=== PATIENT | male | born 1955 | race Two or more races ===

== ENCOUNTER 2019-02-14 10:43 | Outpatient (CLI) | payer OTHER ==
[~2019-02-14 10:43] MED LIST: APRESOLINE 10MG10 MG PO; AVAPRO300 MG PO; COREG CR20 MG PO; LISINOPRIL40 MG PO; METFORMIN HCL500 MG PO
== END 2019-02-14 10:46 | disposition home or self-care (01) ==
LOC: LAB 10:43
DX: R97.21 Rising PSA following treatment for malignant neoplasm of prostate (principal)

== ENCOUNTER 2019-04-12 07:08 | Outpatient (CLI) | payer OTHER | END 2019-04-12 07:16 | disposition home or self-care (01) | LOC: SONOGRAMA 07:08 | DX: C61 Malignant neoplasm of prostate (principal); D29.1 Benign neoplasm of prostate; R97.20 Elevated prostate specific antigen [PSA] ==

== ENCOUNTER 2019-06-06 08:30 | Inpatient (IN) | payer OTHER ==
[~2019-06-06] VITALS: Ht 170.2 cm; Wt 110.2 kg
[2019-06-06] MEDS ORDERED: TRICOR145 MG PO (11:06)
[2019-06-06] MEDS ORDERED: LIPITOR20 MG PO (11:06)
[2019-06-06] MEDS ORDERED: ZYLOPRIM300 MG PO (11:06)
[2019-06-06] MEDS ORDERED: LASIX40 MG PO (11:06)
[2019-06-06] MEDS ORDERED: NORVASC5 MG PO (11:07)
== END 2019-06-14 09:45 | disposition home or self-care (01) | DRG 708 ==
LOC: ADM 08:30 → EDSTATUS 08:30 → O/R 06-12 06:35 → SURG 06-12 06:35 → SURH 06-12 07:00 → SURG 06-12 15:12
PROVIDERS: ADMIT Urology
PROC: 0VT30ZZ Resection of Bilateral Seminal Vesicles, Open Approach (ICD-10-PCS; 2019-06-12)
PROC: 07BC0ZX Excision of Pelvis Lymphatic, Open Approach, Diagnostic (ICD-10-PCS; 2019-06-12)
PROC: 0VT00ZZ Resection of Prostate, Open Approach (ICD-10-PCS; principal; 2019-06-12 07:00)
DX: C61 Malignant neoplasm of prostate (principal); R97.21 Rising PSA following treatment for malignant neoplasm of prostate; N50.89 Other specified disorders of the male genital organs; N49.0 Inflammatory disorders of seminal vesicle; I10 Essential (primary) hypertension; E11.9 Type 2 diabetes mellitus without complications; Z79.4 Long term (current) use of insulin

== ENCOUNTER 2019-06-16 18:54 | Emergency (ER) | payer OTHER ==
[~2019-06-16] VITALS: Ht 350.5 cm; Wt 108.9 kg
[~2019-06-16 18:54] MED LIST changes: +LASIX40 MG PO; +LIPITOR20 MG PO; +NORVASC5 MG PO; +TRICOR145 MG PO; +ZYLOPRIM300 MG PO
[2019-06-16] MEDS ORDERED: IRON 100 PLUS1 EACH (19:14)
== END 2019-06-16 22:45 | disposition home or self-care (01) ==
LOC: ER 18:54
DX: N99.89 Other postprocedural complications and disorders of genitourinary system (principal); R31.29 Other microscopic hematuria

== ENCOUNTER 2021-08-12 09:53 | Outpatient (CLI) | payer OTHER ==
[~2021-08-12 09:53] MED LIST changes: +IRON 100 PLUS1 EACH
== END 2021-08-12 10:01 | disposition home or self-care (01) ==
LOC: TOM 09:53
PROVIDERS: ATTEND Internal Medicine Gastroenterology
DX: K63.5 Polyp of colon (principal); R19.5 Other fecal abnormalities; K56.601 Complete intestinal obstruction, unspecified as to cause